=== PATIENT | female | born 1935 | race Caucasian/White ===

== ENCOUNTER → 2016-09-24 | Outpatient (CLI) | payer MEDICARE, OTHER ==
[~2016-09-24] MED LIST: AMLO-511 PO; FOLI1 PO; LOSA50TA37 PO; METO50 PO; MIRT30 PO; OMEP20 PO; PARO20TA24 PO; SIMV-260 PO
== END | disposition home or self-care (01) ==
LOC: RADPV 11:56
PROVIDERS: ATTEND Family Medicine
DX: Z11.1 Encounter for screening for respiratory tuberculosis (principal); R76.11 Nonspecific reaction to tuberculin skin test without active tuberculosis; K44.9 Diaphragmatic hernia without obstruction or gangrene; I70.0 Atherosclerosis of aorta

== ENCOUNTER → 2017-12-04 | Outpatient (CLI) | payer MEDICARE, OTHER ==
[2017-12-04 11:41] VITALS: BP 127/65
== END | disposition home or self-care (01) ==
LOC: SRCNTR 09:39
PROVIDERS: ATTEND Internal Medicine Cardiovascular Disease
DX: I11.9 Hypertensive heart disease without heart failure (principal); E78.5 Hyperlipidemia, unspecified; F99 Mental disorder, not otherwise specified
CPT/HCPCS: G0463